=== PATIENT | female | born 1980 | race Caucasian/White ===

== ENCOUNTER 2016-12-10 05:46 | Inpatient (IN) | payer OTHER ==
[~2016-12-10] VITALS: Ht 167.6 cm; Wt 77.1 kg
[~2016-12-10 05:46] MED LIST: CeFAZolin Inj 2 GM in IV Premix 1 EACH IV ONE
[2016-12-10] MEDS ORDERED: Lactated Ringer's 1,000 ML IV SCH (06:00)
[2016-12-10] MEDS ORDERED: Carboprost 250 mCg/mL Inj IM PRN ×2 (06:00→09:10)
[2016-12-10] MEDS ORDERED: Hemorrhage Kit, Post Partum XX ONE ×2 (06:00→09:10)
[2016-12-10] MEDS ORDERED: Sodium Citrate-Citric Acid 15 mL Solution PO SCH (06:00)
[2016-12-10] MEDS ORDERED: Methylergonovine 0.2 mg/mL Inj IM PRN ×2 (06:00→09:10)
[2016-12-10] MEDS ORDERED: Oxytocin 10 Unit/mL Inj IM PRN ×2 (06:00→09:10)
[2016-12-10 06:39] LABS: Mean Corpuscular Hemoglobin 29.7 pg (27.0-35.0); Mean Corpuscular Volume 89.1 fL (81-100)
--- NOTE | 2016-12-10 07:41 | PCM.HPANE ---
Patient Data Surgeon Admitting Provider:Mak Campa MD Attending Provider:Mak Campa MD Primary Care Physician:Mikala Oscar CNM Other Provider:Urvashi Melgoza Anesthesia Reason for Visit Di/Di twins. One vertex one breech Di/Di twins. One vertex one breech Ht/WT & BMI Body Mass Index Allergies Coded Allergies: No Known Allergies (Unverified , 02/10/16) Past Anesthesia History Anesthesia History: Denies:: Abnormal Airway, Anesthesia Reactions, Difficult Intubation, Fam Anesthesia Reaction, Fam Malignant Hypertherm, Malignant Hyperthermia Diabetes History Hx Diabetes?: No MRSA MRSA: No Medications Hypertension Medication: No Home Meds Incl Beta Michelle: No No Active Prescriptions or Reported Meds History History of ENT Problems?: No HEENT History: Denies:: Abnormal Airway Cataracts Difficult Intubation Dysphagia Glaucoma Hearing Problem Sinus Problem TMJ Denture Type: None Teeth Condition: Within Normal Limits Hx of Heart Problems?: No Cardiovascular History: Denies:: AICD Abdominal Aortic Aneurism Atrial Fibrillation Cardiac Surgery Chest Pain Congestive Heart Failure Coronary Artery Disease Edema Heart Murmur Hypertension Irregular Heartbeat Pacemaker Peripheral Vascular Rheumatic Fever Thrombophlebitis Valvular Heart Disease Hx of Respiratory Problem?: No Respiratory History: Denies:: Asthma COPD Chest Surgery Cough Dyspnea Emphysema Hemoptysis Oxygen Administration Pneumonia Pulmonary Embolism Tuberculosis Use of C-PAP Machine Use of Inhalers / NEBS Hx Neurologic Problems?: No Neurological History: Denies:: Alzheimer's Disease CVA Dementia Dizziness Headaches Multiple Sclerosis Parkinson's Disease Peripheral Neuropathy Seizures TIA Hx of GI Problems?: No Gastrointestinal History: Denies:: Cirrhosis Diverticulitis Gall Bladder Disease Gastroesphageal Reflux Gastrointestinal Bleeding Heartburn Hepatitis Hiatal Hernia Liver Disease Rectal Bleeding Hx of Problems?: No Genitourinary History: Denies:: HX of Hemodialysis Kidney Stones Urinary Tract Infection Female Hx: Positive for:: Currently Hx Musculoskeletal Problems?: No Musculoskeletal History: Denies:: Back Injury Degenerative Joint Fibromyalgia Joint Replacement Musculoskeletal Trauma Myasthenia Gravis Osteoarthritis Rheumatoid Arthritis Systemic Lupus Psycho Social History: Denies:: Anxiety Bipolar Disorder Hx Depression Suicide Attempt Hx Surgeries?: No Hx Any Other Health Problems?: Yes (cholestasis) Other History: Denies:: Cancer Endocrine Disease Hospitalization Thyroid Disease History Blood Transfusions: Denies:: Accept Blood Products? Blood Transfuse Reaction Blood Transfusions Hx Diabetes: No Hx Alcohol Use: NoHx Substance Use: No Smoking Status: Never Smoker Have You Smoked inLast 12 mo: No Stop/Bang Risk Assessment Category Category 1A: Patient has history of documented sleep apnea, and HAS NOT received any narcotic, sedative or anesthesia administration during this stay. Category 1B: Patient has history of documented sleep apnea, and HAS received any narcotic , sedative or anesthesia administration during this stay Category 2: Patient has SUSPECTED Obstructive Sleep Apnea, and HAS received any narcotic , sedative or anesthesia administration during this stay. Category 3: Patient has SUSPECTED Obstructive Sleep Apnea and HAS NOT received narcotic, sedative or anesthesia administration during this stay. Category 4: Outpatient in Procedural Areas with known sleep apnea or who screen positive for High Risk via the STOP/BANG questionnaire. Exam Exam General Appearance: Alert, Oriented X3, Cooperative, No Acute Distress HEENT/AIRWAY: MP 1 Lungs: Clear to Auscultation Heart: Exam Unremarkable Meds/Labs/Diagnostics Admission Meds Current Medications Lactated Ringer's (Lr) 1,000 ml @ 125 mls/hr Q8H IV Last administered on 07:01; Start 12/10/16 at 06:00; Stop 12/10/16 at 13:59 Citric Acid/ Sodium Citrate (Bicitra) 30 ml PREOP PO Last administered on 07:01; Start 12/10/16 at 06:00; Stop 12/10/16 at 06:01; Status DC Labs Test 12/10/16 06:35 White Blood Count 8.3th/mm3 (3.8-10.1) Red Blood Count 4.21mil/mm3 (3.90-5.20) Hemoglobin 12.5g/dL (12.0-15.6) Hematocrit 37.5% (35.0-46.0) Mean Corpuscular Volume 89.1fL (81-100) Mean Corpuscular Hemoglobin 29.7pg (27.0-35.0) Mean Corpuscular Hemoglobin Concent 33.3% (32.0-37.0) Red Cell Distribution Width 14.4% (12.3-15.4) Platelet Count 275bil/L (150-400) Plan Impression Patient chart reviewed, patient interviewed and anesthestic plan with risks, benefits, and alternatives discussed, and informed consent obtained. ASA Physical Status: ASA2 Mod Systemic Disease Anesthetic Plan: SAB Bene/Risks/Altern/Consents: Yes HP Complete Prior to Induction: Yes Kevin Brown MD Dec 10, 2016 07:40
[2016-12-10] MEDS ORDERED: EPHEDrine Sulfate 50 mg/mL Inj IVPUSH PRN (08:05)
[2016-12-10] MEDS ORDERED: Morphine PF 1 mg/mL 10 mL Inj INTRATHEC ONE (08:05)
[2016-12-10] MEDS ORDERED: Dexamethasone 4 mg/mL Inj IVPUSH PRN (08:05)
[2016-12-10] MEDS ORDERED: fentaNYL-PF 50 mCg/mL 2 mL Inj IVPUSH PRN (08:05)
[2016-12-10] MEDS ORDERED: MetoCLOpramide 5 mg/mL 2 mL Inj IVPUSH PRN (08:05)
[2016-12-10] MEDS ORDERED: HYDROmorphone 1 mg/mL Inj IVPUSH PRN (08:05)
[2016-12-10] MEDS ORDERED: Atropine 0.4 mg/mL Inj IV PRN (08:05)
[2016-12-10] MEDS ORDERED: Ondansetron 2 mg/mL 2 mL Inj IVPUSH PRN (08:05)
[2016-12-10] MEDS ORDERED: HYDROcodone-APAP 5-325 mg Tablet PO PRN (09:10)
[2016-12-10] MEDS ORDERED: Sodium Chloride LOK Flush 10 mL Syringe IVFLUSH PRN (09:10)
[2016-12-10] MEDS ORDERED: LANOlin HPA 7 Gm Ointment TOPICAL PRN (09:10)
[2016-12-10] MEDS ORDERED: hydrOXYzine Pamoate 25 mg Capsule PO PRN (09:10)
[2016-12-10] MEDS ORDERED: Acetaminophen IV 1,000 MG in IV Premix 1 EACH IV PRN (09:10)
[2016-12-10] MEDS ORDERED: Oxytocin 30 Units/500 mL LR 30 UNITS in IV Premix 1 EACH IV PRN (09:10)
[2016-12-10] MEDS ORDERED: diphenhydrAMINE 50 mg Capsule PO PRN (09:10)
--- NOTE | 2016-12-10 09:15 | PCM.ANEP1 ---
Post Anesthesia Phase 1 PACU Phase 1 Assessment Anesthetic Administered: SAB Level of Alertness: Awake, talking MAHAJAN's with Equal Strength: No (spinal) Pain: No Nausea or Vomiting: No Oxygen Delivery: Room Air Lungs: Clear to Auscultation Complications: No Kevin Brown MD Dec 10, 2016 09:15
[2016-12-10] MEDS: Lactated Ringer's 1,000 ML IV SCH ×2 (10:05→23:26)
--- NOTE | 2016-12-10 10:21 | OP ---
[address] [address] OPERATIVE REPORT PATIENT: SALENA OSHEA : 1980 MR#: [id number] ADMIT: 12/10/2016 JOB ID: [id number] DATE OF SURGERY: 12/10/2016 PREOPERATIVE DIAGNOSIS(ES): 1. Multiparous female at 37 weeks estimated gestational age. 2. Dichorionic, diamniotic twins. 3. Vertex/breech presentation of twins. 4. Cholestasis of . POSTOPERATIVE DIAGNOSIS(ES): 1. Multiparous female at 37 weeks estimated gestational age. 2. Dichorionic, diamniotic twins. 3. Vertex/breech presentation of twins. 4. Cholestasis of . SURGERY: Primary low transverse section via Pfannenstiel incision. SURGEON: Dr. Mak Campa DEATH SURVEYS CODER: UBALDO Buenrostro ANESTHESIA: Spinal. INDICATIONS: As above. COMPLICATIONS: None. FINDINGS: 1. The baby that was delivered first had a nuchal cord and was considered baby A, though in utero she was baby B. This was a female who weighed 5 pounds 6 ounces and was vigorous. Apgars not known at this time. 2. The second baby that delivered had no nuchal cord and was also a female and was in vertex presentation and had formerly been considered baby A in utero but now is baby B. This baby weighed 6 pounds, and was initially vigorous but required additional positive pressure ventilation and some nursery time. See pediatric notes for this. 3. Clear amniotic fluid in both sacs and a profuse amount of it in both sacs. 4. Normal uterus, tubes and ovaries. ESTIMATED BLOOD LOSS: 600 cc. IV FLUIDS: In 1500 cc. URINE OUT: 50 cc of clear urine. PATHOLOGY: None and the patient wishes to keep the placentas. DETAIL: The patient was taken back to the OR where spinal anesthesia was performed. She was prepped and draped in the usual fashion. A procedural time-out was done. The level of anesthesia was confirmed and it was excellent. The patient's was brought into the room and the procedure was started in the usual fashion with a low transverse skin incision. This was carried down in a Pfannenstiel manner to the fascia. The fascia was incised in the midline and this incision was carried laterally in each direction with Quintero scissors. Fascia was then elevated both superiorly and inferiorly with the Nasim clamps and the underlying muscle was dissected off using the Quintero scissors and the Bovie. Once this had been accomplished, there was a midline muscular separation from itself that was noted. This separation was exploited using our fingers to enter the peritoneal layer and both the muscle and the peritoneal layer further. The underlying uterus was noted to be shifted to the left. The bladder positioning was noted. The bladder flap was created using the Metzenbaum scissors. The bladder blade was reinserted to protect the bladder at this point. The uterine incision was made but final entry into the uterus was with the back of a knife. The first sac that was encountered was the initial in utero baby B. This baby was known to be breech. The breech was delivered in the usual fashion after rupture of the sac and clear fluid was obtained. There was no complications in delivering the breech and eventually the head. There was a double nuchal cord that was easily reduced. The cord was clamped and cut and the infant was handed off to the waiting lasting room supervisor with the denotation of being now baby A. Cord blood was then gathered from this cord and marked appropriately. Next, the sac for the vertex baby who was formally baby A was encountered and was intact. This sac was then ruptured using the Allis clamp and a profuse amount of clear fluid was obtained. The vertex was delivered easily as was the rest of the baby. No nuchal cord was noted. The baby's cord was clamped and cut and the was handed off to the waiting lasting room supervisor and noted, at this point, as baby B. This cord blood was gathered from the correct cord and labeled as baby B. At this point, both placentas were delivered at once manually. The uterus was then exteriorized and cleared of all membranes. It was noted to be nicely firm. Bleeding was minimal. The bladder blade was reinserted and the uterine incision was closed in a running, locked fashion using 1-0 chromic suture. An imbricating layer was performed. This was also using 1-0 chromic suture. The additional bleeders were made hemostatic using the Bovie. Next, pelvic and abdominal irrigation was performed. The uterus was then replaced back into the pelvis. It was examined multiple times for bleeding and none was found. The abdominal muscle was closed using 2-0 chromic in a running fashion. Next, the fascia was closed in a running fashion using 0-Vicryl. Once this had been performed, the subcutaneous tissue was irrigated. The patient was very thin so no additional subcutaneous sutures were needed. The skin incision was closed using smita and a standard dressing was applied. Counts were correct x3. There were no other complications of this procedure. The patient was in excellent condition following the procedure. Of note is that just prior to the procedure, the patient had received 2 g of IV Ancef. No additional antibiotics were needed following the procedure. She was taken back to her preoperative room.
[2016-12-10] MEDS ORDERED: Oxytocin 10 Unit/mL Inj ONE (14:29)
[2016-12-10] MEDS ORDERED: Phenylephrine 10,000 mCg/mL Inj ONE (14:29)
[2016-12-10] MEDS ORDERED: fentaNYL-PF 50 mCg/mL 2 mL Inj ONE (14:29)
[2016-12-10] MEDS ORDERED: Morphine PF 1 mg/mL 10 mL Inj ONE (14:29)
[2016-12-10] MEDS ORDERED: Ondansetron 2 mg/mL 2 mL Inj ONE (14:29)
[2016-12-10] MEDS ORDERED: Bupiv-Spinal 0.75%/Dex 8.25% 2 mL Inj ONE (14:29)
[2016-12-11] MEDS: oxyCODONE-Acetamin 5-325 mg Tablet PO PRN ×5 (05:27→23:00)
[2016-12-11 07:32] LABS: Mean Corpuscular Hemoglobin 29.7 pg (27.0-35.0); Mean Corpuscular Volume 91.3 fL (81-100)
--- NOTE | 2016-12-11 08:02 | PCM.PNOBPP ---
Subjective Date of Service Dec 11, 2016 Post : Primary Ceserean Delivery Lochia: Normal Pain Management: PO pain meds Gastrointestinal: No N/V Postop Activity: Ambulating Independently Labs Laboratory Tests 12/11/16 07:23: White Blood Count 10.2, Red Blood Count 3.10, Hemoglobin 9.2, Hematocrit 28.3, Mean Corpuscular Volume 91.3, Mean Corpuscular Hemoglobin 29.7, Mean Corpuscular Hemoglobin Concent 32.5, Red Cell Distribution Width 14.4, Platelet Count 197 Exam Vital Signs Vital Signs: VS reviewed, stable Exam Abdomen: Fundus firm Extremities: No cords Lungs: Clear to Auscultation Heart: Exam Unremarkable General: Alert, Oriented X3 OB Post Assessment/Plan Pain Evaluation: Adequate Pain Control Post plan: Continue routine post care, Discharge home tomorrow Mak Campa MD Dec 11, 2016 08:01
[2016-12-12] MEDS: oxyCODONE-Acetamin 5-325 mg Tablet PO PRN ×3 (02:34→12:02)
--- NOTE | 2016-12-12 11:54 | PCM.DC.OB ---
Obstetrical Discharge Summary Date of Service Dec 12, 2016 Date of hospital admission Dec 10, 2016 at 05:46 Date of Discharge: Dec 12, 2016 Providers Admitting Physician: Mak Campa MD Primary Care Physician: Mikala Oscar CNM Attending Physician: Mak Campa MD Problems: (1) Status post primary low transverse section Status: Acute ICD Code: Z98.891 Consultations None Invasive procedures Primary LTCS Date of Procedure: Dec 10, 2016 Hospital Course: Patient present for scheduled . No complications. Recovered well. HCT was 28 at discharge. No Active Prescriptions or Reported Meds Discharge Diet: No restrictions Discharge Activity-General: Pelvic Rest for 6 weeks, Try not to overdue, Be up and about, Balance rest and activity, Activity as pain allows, Activity as energy allows, No lifting >15 pounds for 2 weeks Mak Campa MD Dec 12, 2016 11:54
--- NOTE | 2016-12-12 11:56 | PCM.DIOB ---
Obstetrical Disch Instruction Date of Service: Dec 12, 2016 Dates of Hospitalization Date of Hospital Admission Dec 10, 2016 at 05:46 Providers Admitting Physician: Mak Campa MD Primary Care Physician: Mikala Oscar CNM Attending Physician: Mak Campa MD Discharge Diagnosis Problems: (1) Status post primary low transverse section Status: Acute ICD Code: Z98.891 Diet Discharge Diet: No restrictions Activity Discharge Activity-General: Pelvic Rest for 6 weeks, Be up and about, Balance rest and activity, Activity as energy allows, No lifting >15 pounds for 2 weeks Dressing and Incisional Care Dressing Care: Allow Steri Stripes to fall off Hygiene: May shower, NO bathtub, hot tub or whirlpool Follow Up Plan Follow-up Provider (F9): Mak Campa MD Follow-up appointment: Weeks (8) Call your provider for: Fever or Chills, Heavy vaginal bleeding, Heavy bleeding , Excessive constipation, Red painful breasts Mak Campa MD Dec 12, 2016 11:56
[2016-12-12] MEDS ORDERED: OXYC1TAB24 PO (11:58)
[2016-12-12] MEDS ORDERED: IBUP800T28 PO (11:58)
[2016-12-12] MEDS ORDERED: DOCU-41 PO (11:58)
== END 2016-12-12 14:30 | disposition home or self-care (01) | DRG 765 ==
LOC: FBC 05:46 → EDSTATUS 07:15
PROVIDERS: ADMIT Family Medicine; ATTEND Family Medicine
PROC: 10D00Z1 Extraction of Products of Conception, Low, Open Approach (ICD-10-PCS; principal; 2016-12-10 07:15)
DX: O30.043 Twin pregnancy, dichorionic/diamniotic, third trimester (principal); K83.1 Obstruction of bile duct; O26.62 Liver and biliary tract disorders in childbirth; O32.1XX2 Maternal care for breech presentation, fetus 2; O69.81X2 Labor and delivery complicated by cord around neck, without compression, fetus 2; O30.042 Twin pregnancy, dichorionic/diamniotic, second trimester; Z37.2 Twins, both liveborn; Z3A.37 37 weeks gestation of pregnancy; Z86.19 Personal history of other infectious and parasitic diseases